=== PATIENT | male | born 2000 | race Caucasian/White ===

== ENCOUNTER 2020-01-13 01:38 | Emergency (ER) | payer OTHER ==
[~2020-01-13] VITALS: Ht 175.3 cm; Wt 82.5 kg
[2020-01-13] MEDS ORDERED: LIDOCAINE W/EPINEPHRINE 1% 20ML VIAL SC ONE (02:30)
[2020-01-13] MEDS ORDERED: BUPIVACAINE HCL 0.5% 30 ML VIAL SC ONE (02:30)
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
[2020-01-13 05:39] VITALS: BP 136/69
== END 2020-01-13 04:32 | disposition home or self-care (01) ==
LOC: M ED 01:38
DX: S01.511A Laceration without foreign body of lip, initial encounter (principal); S02.2XXA Fracture of nasal bones, initial encounter for closed fracture; Y04.8XXA Assault by other bodily force, initial encounter; Y92.410 Unspecified street and highway as the place of occurrence of the external cause

== ENCOUNTER 2020-03-01 22:42 | Emergency (ER) | payer OTHER ==
[~2020-03-01] VITALS: Ht 175.3 cm; Wt 75.0 kg
[2020-03-01] MEDS ORDERED: LIDOCAINE W/EPINEPHRINE 1% 20ML VIAL SC ONE (23:15)
[2020-03-02] MEDS ORDERED: KEFL500C17 PO (00:14)
[2020-03-02] MEDS ORDERED: CEPHALEXIN 500 MG CAP PO ONE (00:15)
[2020-03-02 00:55] VITALS: BP 119/71
--- NOTE | 2020-03-04 02:11 | REP ---
INDICATION: fall/lac COMPARISON: None. TECHNIQUE: AP, lateral LEFT TIBIA/FIBULA FINDINGS: The osseous structures and joint spaces are intact and normal. There is no evidence for acute fracture or dislocation. There is a soft tissue defect/laceration overlying the proximal/mid anterior fibula. No associated foreign body. IMPRESSION: Soft tissue laceration. No foreign body. No acute fracture or dislocation. <Electronically signed by Sotero Dickson > 03/04/20 [id number]
== END 2020-03-02 00:57 | disposition home or self-care (01) ==
LOC: M ED 22:42
DX: S81.812A Laceration without foreign body, left lower leg, initial encounter (principal); W25.XXXA Contact with sharp glass, initial encounter; Y92.9 Unspecified place or not applicable; Y93.9 Activity, unspecified; Y99.9 Unspecified external cause status